=== PATIENT | female | born 1960 | race Caucasian/White ===

== ENCOUNTER 2016-09-12 08:43 | Emergency (ER) | payer OTHER ==
[2016-09-12] VITALS (7 sets, daily range): BP systolic 123–153; BP diastolic 66–95; PULSE 70–112; RESP 14–23; O2SAT 96–98
[~2016-09-12] VITALS: Ht 170.2 cm; Wt 72.3 kg
[~2016-09-12 08:43] MED LIST: ALBU2.5V4 INHALATION; ALBU8.5H4 INHALATION; BUPR100T15 PO; CLOB15OI2 TP; HYDR-656 PO; IBUP800T28 PO; TIOT18CA3 IH
[2016-09-12] MEDS ORDERED: HYDROmorphone 1 mg/mL Inj IM ONE (09:35)
[2016-09-12] MEDS ORDERED: Ondansetron 2 mg/mL 2 mL Inj IVPUSH ONE (09:40)
--- NOTE | 2016-09-12 09:41 | DRSVH ---
PROCEDURE: X-RAY LEFT WRIST COMPLETE, MINIMUM THREE VIEWS ([id number]) INDICATIONS: pain swollen TECHNIQUE: 3 views of the wrist were acquired. COMPARISON: None. FINDINGS: Bones: Comminuted fracture of the distal radius is noted. Fracture lucencies extend into the radiocar pal joint. Distal fracture fragments are displaced dorsally and there is dorsal angulation. The lunat e bone is displaced and rotated volarly.. Scaphoid view: Not requested Soft tissues: No suspicious soft tissue calcifications. IMPRESSION: 1. Comminuted, intra-articular distal radial fracture. 2. Lunate dislocation. Dictated by: Yue Dupree MD, PhD on 09/12/2016 at 9:35 Approved by: Yue Dupree MD, PhD on 09/12/2016 at 9:39
[2016-09-12] MEDS ORDERED: Propofol 10 mg/mL 20 mL Inj ONE (09:55)
--- NOTE | 2016-09-12 10:37 | ED.REPORT ---
HPI-Extremity Problem Upper Date of Service Sep 12, 2016 ED Provider: Pravin Christopher MD Nursing Notes Stated Complaint: LEFT WRIST INJURY Chief Complaint: Extremity Trauma Allergies: Coded Allergies: No Known Allergies (Verified Allergy, Unknown, 02/26/15) Scheduled Bupropion (Bupropion) 100 Mg Tablet 100 MG PO BID Tiotropium [place]open (Spiriva) 18 Mcg Cap.w.dev 18 MCG IH DAILY Scheduled PRN Albuterol HFA (Albuterol HFA) 8.5 Gm Hfa.aer.ad 2 PUFF INHALATION Q4H PRN PRN For Shortness of Breath Albuterol Neb Soln (Albuterol Neb Soln) 2.5 Mg/3 Ml Vial.neb 2.5 MG INHALATION Q4H PRN PRN For Shortness of Breath Clobetasol Propionate (Clobetasol Propionate) 15 Gm Oint...g. 15 GM TP PRN skin inflammation Ibuprofen (Ibuprofen) 800 Mg Tablet 800 MG PO PRN PRN PRN For Pain hydrOXYzine Hcl (HydrOXYzine Hcl) 25 Mg Tablet 25 MG PO TID PRN PRN For Anxiety General Time Seen by MD: 09:09 Past Medical History Smoking History Current Every Day Smoker, Light Tobacco Smoker Physical Exam Initial Vital Signs Vital Signs (First) Date Time Temp Pulse Resp B/P Pulse Ox O2 Delivery O2 Flow Rate FiO2 09/12/16 08:45 36.4 112 18 145/90 98 09/12/16 09:53 Room Air Discharge & Departure Referrals: Pravin Granger MD (PCP) Pravin Christopher MD Sep 12, 2016 10:37
--- NOTE | 2016-09-12 10:39 | ED.REPORT ---
HPI-General Illness Date of Service Sep 12, 2016 ED Provider: Pravin Christopher MD History of Present Illness: Serena Mendoza is a 55 year old woman with a PMH of multiple abdominal surgeries for perforated diverticulitis who presents following a fall down some stairs at her home with a displaced left wrist fracture with possible lunate dislocation. Nursing Notes Stated Complaint: LEFT WRIST INJURY Chief Complaint: Extremity Trauma Nursing Notes Reviewed: Yes Allergies: Coded Allergies: No Known Allergies (Verified Allergy, Unknown, 02/26/15) Scheduled Bupropion (Bupropion) 100 Mg Tablet 100 MG PO BID Tiotropium [place] (Spiriva) 18 Mcg Cap.w.dev 18 MCG IH DAILY Scheduled PRN Albuterol HFA (Albuterol HFA) 8.5 Gm Hfa.aer.ad 2 PUFF INHALATION Q4H PRN PRN For Shortness of Breath Albuterol Neb Soln (Albuterol Neb Soln) 2.5 Mg/3 Ml Vial.neb 2.5 MG INHALATION Q4H PRN PRN For Shortness of Breath Clobetasol Propionate (Clobetasol Propionate) 15 Gm Oint...g. 15 GM TP PRN skin inflammation Ibuprofen (Ibuprofen) 800 Mg Tablet 800 MG PO PRN PRN PRN For Pain hydrOXYzine Hcl (HydrOXYzine Hcl) 25 Mg Tablet 25 MG PO TID PRN PRN For Anxiety oxyCODONE-Acetaminophen 5-325 mg (oxyCODONE-Acetaminophen 5-325 mg) 1 Each Tablet 1 TAB PO Q6H PRN PRN For Pain General Time Seen by MD: 09:30 Chief Complaint Other (wrist fracture) Hx Obtained From: Patient Sudden in Onset?: Yes Onset Occurred: Yesterday Symptom Duration: Since onset Caused by: Accidental Context: Occurred at: Home injury Location: : Wrist left Quality: Aching, Sharp Radiation: : Does not radiate Severity: Current: Moderate Severity: Maximum: Severe Recent Healthcare: No recent doctor visit Similar Sx Previous: No Past Medical History Past Medical History Notes: Perforated diverticulitis with soraida-colectomy and prior ostomy now with anastamosis Asthma COPD Smoking History Current Every Day Smoker, Light Tobacco Smoker Social History Other Social History: Ambulatory Status Independent Review of Systems Full Review of Systems Musculoskeletal: Reports: Joint pain, Joint swelling Complete sys rev & neg: except as marked. Physical Exam Gen: A/O x3 pleasant cooperative woman in moderate acute distress secondary to wrist pain Neck: Supple non-tender, full ROM HEENT: MM dry and sticky, PERRL, EOMI CV: RRR, no murmurs rubs or gallops Resp: Lungs CTA BL, no wheezing rales or rhonchi Abdomen: Multiple surgical scars, non tender non distended, +BS 4Q Extr: left wrist held static, obvious radial head deformity, neurovascularly intact, very limited movement of fingers on left Neuro: CN 2-12 grossly intact, no focal neurologic deficit Vital Signs Vital Signs Date Time Temp Pulse Resp B/P Pulse Ox O2 Delivery O2 Flow Rate FiO2 09/12/16 12:01 72 19 128/ 97 Room Air 09/12/16 11:29 75 16 123/66 96 Room Air 09/12/16 10:57 70 16 135/79 97 Nasal Cannula 2 09/12/16 10:34 72 18 97 Nasal Cannula 09/12/16 10:08 85 23 149/84 97 Room Air 09/12/16 09:53 84 14 153/95 96 Room Air 09/12/16 08:45 36.4 112 18 145/90 98 Interpretation & Diagnostics Interpretation & Diagnostics: Orthopedics was consulted and they advised us to reduce the radial head fracture and splint the wrist. They will follow up with the patient in clinic for further evaluation. Procedures Procedure Notes: Left radial head fracture reduction: The patient gave consent for both procedure and conscious sedation which was induced with a total of 120 mg of propofol. Once the patient was appropriately sedated Dr. Leopoldo Carr and Dr. Christopher applied traction to the wrist and counter traction to the elbow until there was a palpable pop and cheondoism of gross anatomic alignment. Follow up X-ray demonstrated that the fracture of the radial head was no longer displaced, and the wrist was splinted in the standard fashion. Proced Mod Sedation/Analgesia Procedure Performed by: ED physician Sedation Time: 31 - 45 min Consent / Setup: Informed consent provided, Consent from patient, Stand sterile technique, Position supine Indication: Fracture reduction Preparation: telemetry monitor applied, Pulse oximeter applied, Constant attendance, IV access established, Eval last meal time, Supplemental oxygen, Procedure explained, Suction available, End tidal CO2 mon applied VS Prior to Procedure: All vital signs normal Mallampati: Class & Anatomy: 1 tonsils/uvula/s palate Airway Exam: Normal facial anatomy CVS/Resp Exam: Normal breath sounds Neuro Exam: Alert Sedation: Sedation: Propofol ASA Classification: 1 normal healthy patient Response During Procedure: Handled secretions adeq, Maintained airway well, Oxygenation stable, Sedation appropriate Complications During/After: None Reversal: None required Mental Status After Procedure: Alert Post-Procedure: Alert prior to discharge, Vital signs normal Attestation: I performed sedation Discharge & Departure Shift Change Sign-Out Discussed Complaint(s): Yes Imaging Studies: Imaging discussed Procedures: Results discussed Response to Therapy: Improved Primary Impression: Wrist fracture, left Encounter type: initial encounter Fracture type: closed Qualified Code: S62.102A - Fracture of unspecified carpal bone, left wrist, initial encounter for closed fracture Disposition: Home Discharge Condition All VS Reviewed: Yes Condition: Stable Patient Instructions: Splint Care (ED) Additional Instructions: Call Dr. Humphries [phone] to schedule a follow up appointment to have your wrist evaluated. We reduced your fracture back into proper alignment, but there is a risk that it will fall out of place again. You have a further dislocation of one of the bones in your wrist that Dr. Humphries will evaluate. Avoid getting the splint wet as best as you are able, when bathing put your left arm in a garbage bag and cinch it at the top with a rubber band or cord. Keep it covered in the rain. Try to minimize your pain medication as best as you are able, you should start with Ibuprofen, if this proves inadequate to control the pain move on to the Percocet we have prescribed. Take no more than directed. Referrals: Pravin Granger MD (PCP) Crit Care Except Billable Proc Time Spent: 30-74 minutes Services Performed: Patient management by me, Time spent at bedside, Reviewing test results, Reviewing imaging, Discussing patient care, Documentation in record, Time with fam/surrogate EDSupervising Provider for APC: Pravin Christopher MD Attending Statement I saw evaluated patient with resident Dr. Carr. I saw and evaluated patient independently. In brief, 55-year-old female with left distal radius comminuted intra-articular fracture and lunate dislocation. I reduced the distal radius fracture under conscious sedation with propofol. Neurovascularly intact status post reduction. I discussed with orthopedics regarding lunate dislocation and the fracture and they recommended follow-up with orthopedics this week. Splinted. Neurovascular intact post splint placement. copies to: Pravin Granger MD, David E DO Sep 12, 2016 10:39 Pravin Christopher MD Sep 12, 2016 17:38
--- NOTE | 2016-09-12 10:41 | DRSVH ---
PROCEDURE: X-RAY LEFT WRIST, TWO VIEWS ([id number]) INDICATIONS: LEFT WRIST FRACTURE - POST REDUCTION TECHNIQUE: 3 views of the wrist were acquired. COMPARISON: [facility], CR, XR WRIST 3VW LT, 09/12/2016, 9:32. FINDINGS: Bones: Interval overlying cast material is not visualized on one image. The previously identified com minuted distal radial fracture is again noted with lucencies appearing to be extend to the radiocarpa l joint. There is improved anatomic alignment with marked reduction of previous angulation. The lunat e bone also demonstrates improved anatomic alignment. Scaphoid view: Not obtained. Soft tissues: No suspicious soft tissue calcifications. IMPRESSION: Post reduction views of previous distal radial fracture as well as lunate dislocation. Dictated by: Antonieta Munoz M.D. on 09/12/2016 at 10:37 Approved by: Antonieta Munoz M.D. on 09/12/2016 at 10:39
[2016-09-12] MEDS ORDERED: HYDROmorphone 1 mg/mL Inj IVPUSH PRN (10:45)
[2016-09-12] MEDS ORDERED: OXYC1TAB24 PO (11:27)
[2016-10-04] MEDS ORDERED: HYDR-656 PO (15:48)
[2016-10-04] MEDS ORDERED: OXYC1TAB24 PO (15:48)
[2016-10-04] MEDS ORDERED: CLOB15CR2 TP (15:48)
[2016-10-04] MEDS ORDERED: ALBU8.5H2 INHALATION (15:48)
[2016-10-04] MEDS ORDERED: TIOT18CA3 IH (15:48)
[2016-10-04] MEDS ORDERED: [UNRECOGNIZED DRUG - OTHER] TOP (15:48)
[2016-10-04] MEDS ORDERED: TRAZ-115 PO (15:48)
[2016-10-04] MEDS ORDERED: BUPR75TA10 PO (15:48)
[2016-10-04] MEDS ORDERED: ALBU2.5V4 INHALATION (15:48)
[2016-10-04] MEDS ORDERED: KEN25CR EXT (15:48)
== END 2016-09-12 11:32 | disposition home or self-care (01) ==
LOC: SED 08:43
DX: S52.122A Displaced fracture of head of left radius, initial encounter for closed fracture (principal); W10.8XXA Fall (on) (from) other stairs and steps, initial encounter; Y92.008 Other place in unspecified non-institutional (private) residence as the place of occurrence of the external cause; Y93.89 Activity, other specified; Y99.8 Other external cause status; J45.909 Unspecified asthma, uncomplicated; J44.9 Chronic obstructive pulmonary disease, unspecified; F17.200 Nicotine dependence, unspecified, uncomplicated; Z98.0 Intestinal bypass and anastomosis status
CPT/HCPCS: 24650; 73100; 73110; 94799; 96372; 96374; 96375; 99152; 99156; 99157; 99285; J1170; J2405

== ENCOUNTER 2016-10-05 10:42 | Day surgery (SDC) | payer OTHER ==
[~2016-10-05] VITALS: Ht 170.2 cm; Wt 77.8 kg
[2016-10-05] VITALS (8 sets, daily range): BP systolic 102–132; BP diastolic 65–78; PULSE 68–85; RESP 5–20; O2SAT 93–99
[~2016-10-05 10:42] MED LIST changes: +ALBU8.5H2 INHALATION; -ALBU8.5H4 INHALATION; -BUPR100T15 PO; +BUPR75TA10 PO; +CLOB15CR2 TP; -CLOB15OI2 TP; +CeFAZolin 2 Gm/50 mL D5W IV Premix IV ONE; -IBUP800T28 PO; +KEN25CR EXT; +Lactated Ringer's 1,000 ML IV SCH; +OXYC1TAB24 PO; +TRAZ-115 PO; +[UNRECOGNIZED DRUG - OTHER] TOP
[2016-10-05] MEDS ORDERED: Dexamethasone 4 mg/mL Inj ONE (10:43)
[2016-10-05] MEDS ORDERED: Propofol 10,000 mCg/mL 20 mL Inj ONE (10:43)
[2016-10-05] MEDS ORDERED: fentaNYL-PF 50 mCg/mL 2 mL Inj ONE (10:43)
[2016-10-05] MEDS ORDERED: Ondansetron 2 mg/mL 2 mL Inj ONE (10:43)
[2016-10-05] MEDS ORDERED: Lactated Ringer's 1,000 ML IV ONE (10:59)
[2016-10-05] MEDS ORDERED: CeFAZolin Inj 2 gm / 50mL D5W IV ONE ×2 (11:00)
[2016-10-05] MEDS ORDERED: IBUP800T28 PO (11:32)
[2016-10-05] MEDS: fentaNYL-PF 50 mCg/mL 2 mL Inj ONE ×3 (11:36→12:31)
--- NOTE | 2016-10-05 12:42 | PCM.HPANE ---
Patient Data Surgeon Admitting Provider: Attending Provider:Solomon Humphries MD Primary Care Physician:Pravin Granger MD Other Provider:Leonarda Russellingham Anesthesia Reason for Visit Left Distal Radius Fracture Ht/WT & BMI Height (Feet): 5 Height (Inches): 7 Weight (Kilograms): 77.8 Body Mass Index 26.00 Allergies Coded Allergies: No Known Allergies (Verified Allergy, Unknown, 02/26/15) Past Anesthesia History Anesthesia History: Denies:: Abnormal Airway, Anesthesia Reactions, Difficult Intubation, Fam Anesthesia Reaction, Fam Malignant Hypertherm, Malignant Hyperthermia Diabetes History Hx Diabetes?: No MRSA MRSA: No Medications Hypertension Medication: No Home Meds Incl Beta Neftaly: No Reported Medications Ibuprofen 800 Mg [id number] Mg PO TID PRN For Pain Ref 0 10/05/16 Triamcinolone Acet (Triamcinolone Acetonide Cream)1 Applic/0.25 Gm Cr1 Applic EXT BID #60 GM Ref 0 10/04/16 Trazodone 50 Mg Xqsaxp20 Mg PO HS Ref 0 10/04/16 Tiotropium [place] (Spiriva)18 Mcg Cap.w.dev18 Mcg IH DAILY PRN For Shortness of Breath #1 PKG Ref 0 10/04/16 oxyCODONE-Acetaminophen 5-325 mg 1 Each Tablet1 Tab PO Q6H PRN For Pain Ref 0 10/04/16 hydrOXYzine Hcl (HydrOXYzine Hcl)25 Mg Lcpcfv80 Mg PO TID PRN For Itching Ref 0 10/04/16 [dermasmooth] 0.01% No Conflict CheckUnknown Dose TOP HS apply to scalp evening, rinse off am 10/04/16 Clobetasol Propionate 15 Gm Cream..g.15 Gm TP PRN skin irritation 10/04/16 Bupropion 75 Mg Qftvjk07 Mg PO BID Ref 0 10/04/16 Albuterol HFA (Proair HFA)8.5 Gm Hfa.aer.ad2 Puffs INHALATION Q4H PRN For Shortness of Breath #1 INHALER 10/04/16 Albuterol Neb Soln 2.5 Mg/3 Ml Vial.neb2.5 Mg INHALATION Q4H PRN For Shortness of Breath Ref 0 10/04/16 Discontinued Reported Medications hydrOXYzine Hcl (HydrOXYzine Hcl)25 Mg Wivezx87 Mg PO TID PRN For Anxiety Ref 0 02/26/15 Bupropion 100 Mg [id number] Mg PO BID Ref 0 02/26/15 Tiotropium [place] (Spiriva)18 Mcg Cap.w.dev18 Mcg IH DAILY #1 PKG Ref 0 02/26/15 Clobetasol Propionate 15 Gm Oint...g.15 Gm TP PRN skin inflammation 02/26/15 Albuterol HFA 8.5 Gm Hfa.aer.ad2 Puff INHALATION Q4H PRN For Shortness of Breath #1 INHALER Ref 0 02/26/15 Albuterol Neb Soln 2.5 Mg/3 Ml Vial.neb2.5 Mg INHALATION Q4H PRN For Shortness of Breath Ref 0 02/26/15 Ibuprofen 800 Mg Estecz096 Mg PO PRN PRN For Pain Ref 0 10/06/13 Discontinued Scripts oxyCODONE-Acetaminophen 5-325 mg 1 Each Tablet1 Tab PO Q6H PRN For Pain #30 TABLET Ref 0 Prov:Leopoldo Carr DO 09/12/16 History History of ENT Problems?: No HEENT History: Denies:: Abnormal Airway Cataracts Difficult Intubation Dysphagia Hearing Problem Sinus Problem Hx of Heart Problems?: Yes Cardiovascular History: Positive for:: Chest Pain (From COPD) Heart Murmur (ECHO 07/2012) Valvular Heart Disease (MILD TRICUSP REGURGE) Denies:: AICD Atrial Fibrillation Cardiac Surgery Congestive Heart Failure Edema Hypertension Irregular Heartbeat Pacemaker Thrombophlebitis Hx of Respiratory Problem?: Yes Respiratory History: Positive for:: Asthma COPD Cough Dyspnea Pneumonia Use of Inhalers / NEBS Denies:: Chest Surgery Emphysema Hemoptysis Oxygen Administration Tuberculosis Use of C-PAP Machine Hx Neurologic Problems?: No Neurological History: Denies:: Alzheimer's Disease CVA Dementia Dizziness Headaches Parkinson's Disease Seizures Hx of GI Problems?: Yes Gastrointestinal History: Positive for:: Diverticulitis (sigmoid colectomy/ loop ileostomy ) Denies:: Cirrhosis Gastroesphageal Reflux Gastrointestinal Bleeding Heartburn Hepatitis Hiatal Hernia Rectal Bleeding Hx of Problems?: No Genitourinary History: Denies:: HX of Hemodialysis Kidney Stones Urinary Tract Infection HX of Peritoneal Dialysis: No Female Hx: Denies:: Currently Endometriosis Pelvic Inflammatory Problems with Breasts? Skin History: Positive for:: History Skin Disorders? (chronic psoriasis- using UVB) Denies:: Pressure Ulcers Hx Musculoskeletal Problems?: Yes Musculoskeletal History: Positive for:: Back Injury (hx lami) Musculoskeletal Trauma (left radius fx current admission problem, DOI 09/12/16) Denies:: Degenerative Joint Joint Replacement Systemic Lupus Hx of Psycho/Social Problems?: Yes Psycho Social History: Positive for:: Anxiety Denies:: Bipolar Disorder Hx Depression Suicide Attempt Hx Surgeries?: Yes (LAMI,SIGMOID COLECTOMY/TRANSVERSE COLOSTOMY) Hx Any Other Health Problems?: Yes Other History: Positive for:: Hospitalization (pneumonia, back surgery, D&C, COLOSTOMY) Denies:: Cancer Endocrine Disease Thyroid Disease History Blood Transfusions: Denies:: Blood Transfusions Hx Diabetes: No Hx Alcohol Use: No (rarely - none this year)Hx Substance Use: No (occasional pot) Smoking Status: Current Every Day Smoker Light Tobacco Smoker Have You Smoked inLast 12 mo: Yes Stop/Bang S-Snoring: Do You Snore Loudly: No T-Tired: feel tired, fatigued: No O-Obsered: Observed not breath: No P-Blood Pressure: treated: No B- Body Mass Index > 35 kg/m2: No A- Age over 50: Yes N- Neck Large Circumference: No G- Gender Male: No LUCRETIA Total Score: 1 LUCRETIA Risk Assessment: Low Risk, <3 Yes Risk Assessment Category Category 1A: Patient has history of documented sleep apnea, and HAS NOT received any narcotic, sedative or anesthesia administration during this stay. Category 1B: Patient has history of documented sleep apnea, and HAS received any narcotic , sedative or anesthesia administration during this stay Category 2: Patient has SUSPECTED Obstructive Sleep Apnea, and HAS received any narcotic , sedative or anesthesia administration during this stay. Category 3: Patient has SUSPECTED Obstructive Sleep Apnea and HAS NOT received narcotic, sedative or anesthesia administration during this stay. Category 4: Outpatient in Procedural Areas with known sleep apnea or who screen positive for High Risk via the STOP/BANG questionnaire. Exam Exam Vital Signs Vital Signs Date Time Temp Pulse Resp B/P Pulse Ox O2 Delivery O2 Flow Rate FiO2 10/05/16 11:11 36.3 71 20 121/70 95 Room Air General Appearance: Alert, Oriented X3, Cooperative, No Acute Distress HEENT/AIRWAY: MP 2 Lungs: Clear to Auscultation, Normal Air Movement Heart: Exam Unremarkable, Regular Rate/Rhythm, No Murmurs/Rubs/Gallops Meds/Labs/Diagnostics Admission Meds Current Medications Lactated Ringer's (Lr) 1,000 ml @ ud STK-MED ONCE IV Last administered on 10/05 10:59; Start 10/05/16 at 10:59; Stop 10/05/16 at 11:00; Status DC Fentanyl Citrate (Sublimaze Inj) 100 mcg STK-MED ONCE .ROUTE Last administered on 10/05/16 12:31; Start 10/05/16 at 11:35; Stop 10/05/16 at 11:36; Status DC Plan Impression Patient chart reviewed, patient interviewed and anesthestic plan with risks, benefits, and alternatives discussed, and informed consent obtained. NPO Status: 10/05/16 COFFEE 0800 ASA Physical Status: ASA2 Mod Systemic Disease Anesthetic Plan: GA Bene/Risks/Altern/Consents: Yes HP Complete Prior to Induction: Yes Ulysses Vieira MD Oct 05, 2016 12:42
[2016-10-05] MEDS ORDERED: fentaNYL-PF 50 mCg/mL 2 mL Inj IVPUSH PRN ×2 (12:45→14:50)
[2016-10-05] MEDS ORDERED: Ropivacaine-PF 0.5% 30 mL Inj INFILTRATE ONE (13:25)
[2016-10-05] MEDS ORDERED: Lactated Ringer's 500 ML IV PRN (14:49)
[2016-10-05] MEDS ORDERED: Lactated Ringer's 1,000 ML IV SCH (14:49)
[2016-10-05] MEDS ORDERED: EPHEDrine Sulfate 50 mg/mL Inj IVPUSH PRN (14:50)
[2016-10-05] MEDS ORDERED: hydrALAZINE 20 mg/mL Inj IVPUSH PRN (14:50)
[2016-10-05] MEDS ORDERED: MetoCLOpramide 5 mg/mL 2 mL Inj IVPUSH PRN (14:50)
[2016-10-05] MEDS ORDERED: Ondansetron 2 mg/mL 2 mL Inj IVPUSH PRN (14:50)
[2016-10-05] MEDS ORDERED: Labetalol 5 mg/mL 4 mL Inj IV PRN (14:50)
[2016-10-05] MEDS ORDERED: Atropine 0.4 mg/mL Inj IVPUSH PRN (14:50)
[2016-10-05] MEDS ORDERED: Phenylephrine 10,000 mCg/mL Inj IVPUSH PRN (14:50)
[2016-10-05] MEDS ORDERED: HYDROmorphone 1 mg/mL Inj IVPUSH PRN (14:50)
[2016-10-05] MEDS ORDERED: Dexamethasone 4 mg/mL Inj IVPUSH PRN (14:50)
[2016-10-05] MEDS ORDERED: oxyCODONE-Acetamin 5-325 mg Tablet PO PRN (15:00)
[2016-10-05] MEDS ORDERED: Ketorolac 15 mg/mL Inj IVPUSH ONE (15:00)
--- NOTE | 2016-10-05 15:03 | PCM.ORTHOP ---
Orthopedic Operative Report Date of Service: Oct 05, 2016 Pre Operative Diagnosis Left distal radius fracture Post Operative Diagnosis Left distal radius malunion Procedure Left distal radius osteotomy, open reduction internal fixation Surgeon Surgeon: Solomon Humphries MD Assistants: Avery Torres Indication for Procedure Left distal radius fracture Findings Left distal radius malunion Details of Procedure Indications: Serena Mendoza is a 55 year old female with left distal radius fracture after fall on outstretched hand. A clear explanation was given to the patient regarding the condition present, and the available conservative and surgical options. It was emphasized that the risks and benefits of surgery include but are not limited to infection, wound healing problems, damage to adjacent structures such as nerves, blood vessels and tendons, prison disability and pain, arthritis, hypersensitivity, deep vein thrombosis, pulmonary embolism, broken hardware, failure of surgery, need for further procedures at time of surgery or later, cast related problems, loss of limb or life. The patient was given an explanation and the patient voiced understanding of what to expect after the procedure or surgery, the limitations in activities of daily living, the likely duration for post operative recovery and the instructions that are to be followed. At the end the patient was invited to seek clarification or ask further questions but there were none. The patient voiced understanding of the entire consultation. Description of Procedure: Patient was taken to operating room and transferred to operating table in supine position. Time out was performed with both anesthesia and orthopaedics faculty present to confirm details of case to be performed. After time out performed, patient placed under general anesthesia and endotracheal tube secured into place. Once endotracheal tube secured, proximal arm tourniquet was placed over softroll and secured with tape. Patient position was again checked to ensure all bony prominences adequately padded. The left arm was prepped and draped in the usual sterile fashion to the level of the tourniquet. The left upper extremity was then exsanguinated with an esmark and the tourniquet was then inflated to 250 mmHG. Incision was made approximately 5 cm long over the course of the flexor carpi radialis (FCR) tendon. Hemostasis was controlled with electrocautery. The flexor carpi radialis tendon sheath was identified. The sheath was then entered with tenotomy scissors and released. The FCR tendon sheath was dissected distally to the level of the superficial radial artery. The FCR tendon was retracted towards the ulna to protect the median nerve. At this time the radial artery was identified and protected and retracted towards the radial side. Incision through the floor of the FCR sheath was performed. The pronator quadratus was identified and released by sharp dissection over the radial and distal edge by making a L incision. A periosteal elevator was used to elevate the pronator quadratus to expose the volar surface of the radius. The fracture site was identified and noted to be healed. The osteotomy was used to free the distal fragment which was released and freed up using a freer elevator and osteotome. The fracture site was debrided with a rongeur and curette. The fracture was reduced and secured with a K-wire. This was confirmed with fluoroscopy. Once the distal fragments were mobilized the fracture was then reduced by placing the arthrex volar plate on the radial shaft and securing it distally with 2 K-wires through the plate. After verifying plate alignment and location of the wires close to subchondral bone, the distal row was fixed with screws. Then using a buttress effect the distal fragments were levered into a reduced position and secured with cortical shaft screws. Fluoroscopy confirmed acceptable reduction. Once the plate placement was appropriate the distal drill holes were drilled and filled with smooth peg locking screws. Proper plate alignment and screw placement was checked once more with fluoroscopy in both the AP and lateral views. Final plate position was confirmed with orthogonal views with fluoroscopy imaging that was saved in PACs. The DRUJ was noted to be stable while performing fluoroscopic exams. Wound was then thoroughly irrigated with NS. The pronator quadratus was reapproximated with 4-0 Vycril suture. Subcutaneous closure completed with 4-0 Vycril suture and skin closure with 3-0 Nylon suture. Sterile dressing was placed on the incision as well as the hand and forearm which was then wrapped with soft roll. A volar resting splint was applied to the left forearm and wrapped with Dangelo wraps. A shoulder sling was also placed for comfort. Patient was then awoken from anesthesia and extubated, his neurovascular status was intact when checked in PACU. Patient tolerated procedure well and there were no complications. I was present and scrubbed for the entire procedure. 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 Without the qualified assistant surveyor being present, it would have extended the operative procedure and made the procedure technically more difficult to perform. Please keep dressing clean dry and intact. Do not remove dressing until follow- up in clinic. Do not weight-bear on the affected extremity. You will follow up in clinic in 10-14 days for suture removal, and placement of new Steri- Strips. You will follow-up with my PA in clinic with new x-rays at this time. You will follow-up with my PA at 6 weeks postop and may start weightbearing as tolerated when radiographic healing noted which may take an additional 2-4 weeks. Please keep the affected extremity elevated when possible. You may use ice and/or heat as needed for comfort (preferably ice during the first 48-72 hours). Please feel free to call with any further questions, comments, and/or concerns. You have been given medications for pain, medication for possible constipation which is a side affect of the pain medications, as well as vitamin C (500mg qdaily X 50 days). Grafts, Implants: Implants-See Implant Record Complications There were no periprocedural complications identified. Condition Stable Anesthetic Administered: GA Catheters: None Output, Estimated Blood Loss: 20 Blood Admin during surgery: No Surgical Cast or Splint: Other Surgical Specimen Removed: No Specimen sent to Pathology: No copies to: Solomon Humphries MD, Christopher L MD Oct 05, 2016 15:03
--- NOTE | 2016-10-05 15:58 | PCM.ANEP1 ---
Post Anesthesia Phase 1 PACU Phase 1 Assessment Date of Service: Oct 05, 2016 Vital Signs Vital Signs Date Time Temp Pulse Resp B/P Pulse Ox O2 Delivery O2 Flow Rate FiO2 10/05/16 15:32 68 16 108/76 93 Room Air 10/05/16 15:30 72 15 114/78 93 Room Air 10/05/16 15:15 73 14 124/76 95 Room Air 10/05/16 15:10 81 13 121/70 95 Room Air 10/05/16 15:05 36.7 85 16 132/70 99 Simple Mask 10 10/05/16 15:00 36.7 79 5 116/65 99 Simple Mask 10/05/16 11:11 36.3 71 20 121/70 95 Room Air Anesthetic Administered: GA Level of Alertness: Awake, talking HUSAIN's with Equal Strength: Yes Pain: No Nausea or Vomiting: No Oxygen Delivery: Room Air Lungs: Clear to Auscultation, Normal Air Movement Dermatome Level: Full Sensation Ulysses Vieira MD Oct 05, 2016 15:58
--- NOTE | 2016-10-05 16:11 | PCM.ANEP2 ---
Post Anesthesia Evaluation ASA/CMS Post Anesthesia VS in Patient's Normal Range?: Yes Resp Stable; Airway Patent?: Yes CV Function & Hydration Stable: Yes Mental Status Recovered?: Yes Pain control Satisfactory?: Yes N/V Control Satisfactory?: Yes Ulysses Vieira MD Oct 05, 2016 16:10
== END 2016-10-05 23:59 | disposition home or self-care (01) ==
LOC: SAS 10:42
PROVIDERS: ATTEND Orthopaedic Surgery
DX: S52.532A Colles' fracture of left radius, initial encounter for closed fracture (principal); W17.89XA Other fall from one level to another, initial encounter; Y93.9 Activity, unspecified; Y92.018 Other place in single-family (private) house as the place of occurrence of the external cause; J45.909 Unspecified asthma, uncomplicated; J44.9 Chronic obstructive pulmonary disease, unspecified; E55.9 Vitamin D deficiency, unspecified; R01.1 Cardiac murmur, unspecified; F41.9 Anxiety disorder, unspecified; F17.210 Nicotine dependence, cigarettes, uncomplicated; Z79.51 Long term (current) use of inhaled steroids
CPT/HCPCS: 25607; 76000; 76942; C1713; J0690; J1100; J1885; J2250; J2405; J2795; J3010; J7120